=== PATIENT | male | born 1950 | race Caucasian/White ===

== ENCOUNTER → 2016-10-09 | Outpatient (CLI) | payer OTHER ==
[~2016-10-09] MED LIST: ISOVUE-370 76% 100ML VIAL (Q9967) As Ordered ONE
--- NOTE | 2016-10-12 15:04 | REP ---
CT ANGIOGRAM ABDOMINAL AORTA AND RUNOFF ANGIOGRAM: 10/09/2016. Clinical history: Abdominal aortic aneurysm. Aortobi-iliac stent graft. Recheck. Technique: Helical scanning through the abdomen and pelvis then lower extremities at 3 mm images. Coronal and sagittal reconstructions with 3-D MIP reformatting with thick slab technique with curved reformat images through the aortoiliac femoral course to the knee on both sides. Findings: CT ABDOMEN: The lung bases show dependent atelectatic change, but otherwise clear. Liver shows scattered hypodensities unchanged from prior study. Most of these are consistent with cysts. Gallbladder, spleen, adrenal glands and pancreas unremarkable. Stomach without hiatal hernia. Small bowel loops unremarkable. Colon shows no colitis, diverticulitis, stricture or masses. There is a normal-appearing appendix. The kidneys show function without obstruction. There is a tiny exophytic cyst anteriorly on the right and small scar posteriorly in that right kidney interpolar region. Degenerative changes throughout the spine. There are no destructive lesions in the spine or ribs. The suprarenal aorta shows no aneurysm or dissection. The infrarenal abdominal aorta shows a saccular aneurysm 8.3 x 7.2 x 8.7 cm, unchanged. The aortobi-iliac stent has a wide-mouth superiorly and it is two iliac components extending to the common iliac arteries. There is some atherosclerotic plaque in both iliac vessels. There is flow remaining through the stent in both limbs. At the inferior margin of the stent a curvilinear focus of density is seen at the inferior aspect of the right limb of the stent within the aneurysm at its thrombosed portion of the graft limbs eccentric anteriorly and towards the right of that large aneurysm. It appears unchanged. There are areas of calcification in the wall of the aorta and its intima. All of this is unchanged. 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 Both external iliac arteries are patent. Some atherosclerotic calcifications without dissection. The femoral arteries in the thigh are symmetric with atherosclerotic calcifications bilaterally. The runoff in the lower legs is suboptimal. Atherosclerotic calcifications in the popliteal artery and branches are suggested. Impression: 1. Stable appearance of the infrarenal abdominal aortic aneurysm with saccular appearance and large thrombosed lumen with aortobi-iliac stent as before. Flow is observed in the stent throughout and there is curvilinear density in the inferior aspect of the stent along the distal right limb of the iliac portion of the graft suggesting an endoleak may be present. No other findings or interval change regarding the stent. 2. Atherosclerotic calcifications scattered in the common femoral, popliteal artery. This is not a good runoff study, but findings appear similar to the previous study and lower legs. 3. 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 Signed by Mj Rucker MD 10/12/2016 05:22 P
== END ==
LOC: M RAD 10:35
PROVIDERS: ATTEND Surgery
DX: T82.330A Leakage of aortic (bifurcation) graft (replacement), initial encounter (principal)

== ENCOUNTER → 2016-11-18 | Outpatient (REF) | payer OTHER | LOC: M LAB REF 09:21 | PROVIDERS: ATTEND Physician Assistant | DX: J02.9 Acute pharyngitis, unspecified (principal) ==

== ENCOUNTER 2017-06-22 08:21 | Emergency (ER) | payer OTHER ==
[~2017-06-22] VITALS: Ht 182.9 cm; Wt 99.4 kg
[2017-06-22] MEDS ORDERED: ATEN50TA2 (08:35)
[2017-06-22] MEDS ORDERED: ATOR40TA75 (08:35)
[2017-06-22] MEDS ORDERED: TRIAMTERENE-HCTZ (08:35)
[2017-06-22] MEDS ORDERED: ASPI81TA85 PO (08:35)
[2017-06-22] MEDS ORDERED: METO1TAB7 (08:35)
[2017-06-22] MEDS ORDERED: LISI-538 (08:35)
--- NOTE | 2017-06-22 09:05 | REP ---
CHEST, PORTABLE SINGLE VIEW There is no evidence of acute infiltrate. No pleural effusion is seen. The heart is normal in size. The mediastinal silhouette is unremarkable. The visualized osseous structures are intact. IMPRESSION: No acute pulmonary disease. Signed by Be Abraham MD 06/22/2017 01:17 P
--- NOTE | 2017-06-22 09:19 | ECGEPIP ---
Stationary ECG Study [facility] - ED Test Date: 2017-06-22 Pat Name: RM ROSA Department: Room: - Gender: M Director Of Analytics: kenyatta : 1950 Requested By: Azra Avalos Order Number: [id number] Reading MD: Marko Garcia Measurements Intervals [place] Rate: 64 P: 48 FL: 192 QRS: -9 QRSD: 100 T: 32 QT: 383 QTc: 396 Interpretive Statements SINUS RHYTHM NSTTW ABNORMALITIES NO PRIORS FOR COMPARISON Electronically Signed On 06-22-2017 9:18:58 EDT by Marko Garcia
[2017-06-22 09:22] LABS: BASO # 0.1 10^3/uL (0.0-0.2); BASO % 0.8 % (0.0-1.0); EOS # 0.1 10^3/uL (0.0-0.50); EOS % 1.6 % (0.0-3.0); IMMATURE GRANULOCYTE % 0.3 % (0-0); LYMPH # 1.5 10^3/uL (1.5-4.5); LYMPH % 23.6 % (24.0-44.0); MEAN CORPUSCULAR HEMOGLOBIN 31.3 pg (27.0-33.0); MEAN CORPUSCULAR HGB CONC 34.5 g/dl (32.0-36.5); MEAN CORPUSCULAR VOLUME 90.9 fl (80.0-96.0); MONO # 0.4 10^3/uL (0.0-0.8); MONO % 5.6 % (0.0-5.0); NEUTROPHILS # 4.4 10^3/uL (1.8-7.7); NEUTROPHILS % 68.1 % (36.0-66.0); PLATELET COUNT, AUTOMATED 249 10^3/uL (150-450); RED CELL DISTRIBUTION WIDTH 13.7 % (11.5-14.5); WHITE BLOOD COUNT 6.4 10^3/uL (4.0-10.0)
[2017-06-22 09:31] LABS: ADD MANUAL DIFFER NO; DIFF SLIDE NUMBER 123
[2017-06-22 09:41] LABS: INR 0.96
[2017-06-22 09:44] LABS: ALBUMIN 3.9 GM/DL (3.2-5.2); ALBUMIN/GLOBULIN RATIO 1.22 (1.00-1.93); ALKALINE PHOSPHATASE 58 U/L (45-117); ALT/SGPT 32 U/L (12-78); ANION GAP 6 MEQ/L (8-16); AST/SGOT 20 U/L (7-37); BILIRUBIN,DIRECT 0.1 MG/DL (0.0-0.2); BILIRUBIN,TOTAL 0.5 MG/DL (0.2-1.0); BLOOD UREA NITROGEN 11 MG/DL (7-18); CALCIUM LEVEL 9.6 MG/DL (8.8-10.2); CARBON DIOXIDE LEVEL 30 MEQ/L (21-32); CHLORIDE LEVEL 104 MEQ/L (98-107); GLOMERULAR FILTRATION RATE > 60.0 (>49); GLUCOSE, FASTING 119 MG/DL (80-110); POTASSIUM SERUM 4.7 MEQ/L (3.5-5.1); SODIUM LEVEL 140 MEQ/L (136-145); TOTAL PROTEIN 7.1 GM/DL (6.4-8.2)
[2017-06-22] MEDS ORDERED: HEPARIN DRIP 25,000 UNITS in APPROPRIATE DILUENT 1 EA IV SCH (10:00)
[2017-06-22] MEDS ORDERED: ASPIRIN 81 MG CHEW TABLET PO ONE ×2 (10:00)
[2017-06-22] MEDS ORDERED: HEPARIN SOD (PORCINE) 5000 UNITS/ML VIAL IV ONE (10:15)
[2017-06-22] MEDS ORDERED: NITROGLYCERIN 2% OINT 1 GM *U/D* PKT TOP ONE (10:15)
[2017-06-22 10:16] VITALS: BP 169/95
[2017-06-22 12:19] VITALS: BP 152/88
== END 2017-06-22 12:25 | disposition short-term general hospital (02) ==
LOC: M ED 08:21
DX: I24.9 Acute ischemic heart disease, unspecified (principal); I25.2 Old myocardial infarction; I10 Essential (primary) hypertension; E78.4 Other hyperlipidemia; Z87.891 Personal history of nicotine dependence

== ENCOUNTER → 2019-10-16 | Outpatient (CLI) | payer OTHER ==
[~2019-10-16] MED LIST changes: +ASPI81TA85 PO; +ATEN50TA2; +ATOR40TA75; -ISOVUE-370 76% 100ML VIAL (Q9967) As Ordered ONE; +LISI-538; +METO1TAB7; +TRIAMTERENE-HCTZ
[2019-10-16 13:02] LABS: BLOOD UREA NITROGEN 14 MG/DL (7-18); CARBON DIOXIDE LEVEL 30 MEQ/L (21-32); CHLORIDE LEVEL 106 MEQ/L (98-107); CREATININE FOR GFR 0.83 MG/DL (0.70-1.30); GLOMERULAR FILTRATION RATE > 60.0 (>42); GLUCOSE, FASTING 104 MG/DL (70-100); POTASSIUM SERUM 4.3 MEQ/L (3.5-5.1); SODIUM LEVEL 139 MEQ/L (136-145)
== END ==
LOC: M LAB 11:46
DX: Z98.890 Other specified postprocedural states (principal); Z79.82 Long term (current) use of aspirin

== ENCOUNTER → 2019-10-25 | Outpatient (CLI) | payer OTHER ==
[~2019-10-25] MED LIST changes: +ISOVUE-370 76% 100ML VIAL (Q9967) As Ordered ONE
--- NOTE | 2019-10-25 12:04 | REPVR ---
PROCEDURE INFORMATION: Exam: CTA Angiogram of the Abdominal Aorta and Bilateral Lower Extremities (Run-off) With IV Contrast Exam date and time: 10/25/2019 10:29 AM Age: 69 years old Clinical indication: Other: Post triple a repair; Additional info: Status post triple a repair TECHNIQUE: Imaging protocol: CT angiogram of the abdominal aorta, pelvis and bilateral lower extremities with IV iodinated contrast. 3D rendering: MIP and/or 3D reconstructed images were created by the technologist. Radiation optimization: All CT scans at this facility use at least one of these dose optimization techniques: automated exposure control; mA and/or kV adjustment per patient size (includes targeted exams where dose is matched to clinical indication); or iterative reconstruction. Contrast material: ISOVUE 370; Contrast volume: 100 ml; Contrast route: IV; COMPARISON: CT ANGIO ABDOMINAL ARTERIES 10/09/2016 11:12 AM FINDINGS: Aorta: There is mild arterial sclerotic disease of the proximal aorta and visceral branches. There is redemonstration of a saccular 6.4 x 8.4 by 9 cm long aneurysm of the distal abdominal aorta within which has been placed an aorto bi-iliac stent graft. The dimensions are similar to the previous study which is concerning for a persistent endoleak but the study has not been designed to evaluate for this. Celiac trunk and mesenteric arteries: No occlusion or significant stenosis. 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 Right iliac arteries: There is moderate calcification of the right common iliac artery without evidence of aneurysm. There is heavy calcification of the right internal iliac artery without evidence of aneurysm or occlusion. Right femoral/popliteal arteries: There is heavy calcification at the right common femoral artery bifurcation on axial image 148 with transverse narrowing of the lumen to 3.5 mm compare to a distal reference diameter of 9 mm suggesting a 60% stenosis. There is scattered proximal and heavy distal calcification of the right superficial femoral artery without stenosis. There is moderate calcification of the right popliteal artery without stenosis. Right infrapopliteal arteries: There is three-vessel arterial runoff to the right ankle. Left iliac arteries: No occlusion or significant stenosis. Left femoral/popliteal arteries: There is angulation of the left common femoral artery stent best seen on coronal image 45. There is no evidence of stenosis. There is a pseudoaneurysm at the left groin measuring 32 mm transversely by 24 mm AP filling from the left common femoral artery on axial image 132 with the left hypogastric artery arising immediately distal to the aneurysm. Previous measurements were 19 x 17 mm suggesting interval growth. There are scattered calcifications in the proximal left superficial femoral artery slightly increasing distally but with no stenosis. There are scattered calcifications of the left popliteal artery without stenosis. Left infrapopliteal arteries: There is three-vessel arterial runoff to the left ankle. Lungs: The visualized portions of the lung bases are normal. There is a longitudinal array of metallic opacities extending from the posterior surface of the aortic bifurcation along the sacrum toward the right side of uncertain significance but possibly reflecting coiling of a vessel. Liver: There are multiple liver hypodensities that cannot be further characterized on the current examination. Gallbladder and bile ducts: Unremarkable. No calcified stones. No ductal dilation. Pancreas: The pancreas is normal. Spleen: The spleen is normal. Adrenals: The adrenal glands are normal. Kidneys and ureters: Normal. No mass. Stomach and bowel: There is extensive diverticulosis extending proximal to the splenic flexure without evidence of acute inflammation. Appendix: A normal appendix is identified. Bladder: Unremarkable. No mass. Reproductive: The prostate gland demonstrates nonspecific parenchymal calcifications. Intraperitoneal space: Unremarkable. No free air. No significant fluid collection. Lymph nodes: No lymphadenopathy. Bones/joints: There are moderate degenerative changes of the bilateral hip joints. A right convex spinal curve is observed. The spine demonstrates moderate degenerative changes at multiple levels. Soft tissues: There is a fat filled right inguinal hernia. There are calcifications of the medial right buttock which may reflect remote fatty necrosis. IMPRESSION: 1. There are moderate degenerative changes of the bilateral hip joints. 2. There is a longitudinal array of metallic opacities extending from the posterior surface of the aortic bifurcation along the sacrum toward the right side of uncertain significance but possibly reflecting coiling of a vessel. 3. 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 4. There is redemonstration of a saccular 6.4 x 8.4 by 9 cm long aneurysm of the distal abdominal aorta within which has been placed an aorto bi-iliac stent graft. The dimensions are similar to the previous study which is concerning for a persistent endoleak but the study has not been designed to evaluate for this. 5. There is heavy calcification at the right common femoral artery bifurcation on axial image 148 with transverse narrowing of the lumen to 3.5 mm compare to a distal reference diameter of 9 mm suggesting a 60% stenosis. 6. There is scattered proximal and heavy distal calcification of the right superficial femoral artery without stenosis. 7. There is three-vessel arterial runoff to the right ankle. 8. There is a pseudoaneurysm at the left groin measuring 32 mm transversely by 24 mm AP filling from the left common femoral artery on axial image 132 with the left hypogastric artery arising immediately distal to the aneurysm. Previous measurements were 19 x 17 mm suggesting interval growth. 9. There is three-vessel arterial runoff to the left ankle. Electronically signed by: Mike Cardenas On 10/25/2019 12:03:45 PM
== END ==
LOC: M RAD 10:12
DX: Z98.890 Other specified postprocedural states (principal); Z86.79 Personal history of other diseases of the circulatory system
CPT/HCPCS: 75635; Q9967

== ENCOUNTER → 2020-09-06 | Outpatient (REF) | payer OTHER ==
[~2020-09-06] MED LIST changes: -ASPI81TA85 PO; +ASPI81TA86 PO; -ISOVUE-370 76% 100ML VIAL (Q9967) As Ordered ONE
== END ==
LOC: M LAB REF 08:43
PROVIDERS: ATTEND Dermatology
DX: C44.301 Unspecified malignant neoplasm of skin of nose (principal)

== ENCOUNTER → 2020-10-18 | Outpatient (CLI) | payer OTHER ==
[~2020-10-18] MED LIST changes: -LISI-538; +LISI20TA33
--- NOTE | 2020-10-18 16:52 | REP ---
INDICATION: CONTUSION COMPARISON: Left hip 07/10/2020. TECHNIQUE: AP and lateral left femur. FINDINGS: There is no evidence of acute fracture, dislocation, or intrinsic bone disease.There are mild degenerative changes at the left hip joint unchanged. Moderate diffuse vascular calcifications are seen in the soft tissues of the thigh. There are mild degenerative changes at the medial aspect of the knee joint. IMPRESSION: No fracture or dislocation. Mild degenerative changes at the hip and knee joints. <Electronically signed by Be Abraham > 10/18/20 1251
== END ==
LOC: M WUC 13:39
PROVIDERS: ATTEND Physician Assistant
DX: S70.12XA Contusion of left thigh, initial encounter (principal); X58.XXXA Exposure to other specified factors, initial encounter; Y92.89 Other specified places as the place of occurrence of the external cause; Y93.89 Activity, other specified; Y99.8 Other external cause status

== ENCOUNTER → 2021-04-07 | Outpatient (CLI) | payer OTHER ==
[~2021-04-07] MED LIST changes: +ASPI81TA26 PO
== END ==
LOC: M LABSMTC 09:22
PROVIDERS: ATTEND Anesthesiology
DX: Z01.818 Encounter for other preprocedural examination (principal)

== ENCOUNTER 2021-04-11 10:26 | Day surgery (SDC) | payer OTHER ==
[~2021-04-11] VITALS: Ht 182.9 cm; Wt 95.7 kg
[~2021-04-11 10:26] MED LIST changes: +NS 1,000 ML IV ONE
[2021-04-11] MEDS ORDERED: LIDOCAINE 2% 100MG/5ML SDV (FOR ANES.) As Ordered ONE (11:44)
[2021-04-11] MEDS ORDERED: propofoL 500 MG/50 ML VIAL As Ordered ONE (11:44)
--- NOTE | 2021-04-11 11:57 | ROOR ---
Patient Name: Mack Barr Procedure Date: 04/11/2021 11:37 AM Date of : 1950 Age: 70 Room: [facility] Gender: Male Note Status: Finalized Procedure: Total Colonoscopy to Cecum + Biopsy Polypectomy Indications: Screening for colorectal malignant neoplasm, Last colonoscopy: 2008 Providers: Kana Donnelly MD Referring MD: Regina HAYNES DO Requesting Provider: Medicines: Monitored Anesthesia Care Complications: No immediate complications. Procedure: Pre-Anesthesia Assessment: - The heart rate, respiratory rate, oxygen saturations, blood pressure, adequacy of pulmonary ventilation, and response to care were monitored throughout the procedure. The Colonoscope was introduced through the anus and advanced to the cecum, identified by appendiceal orifice and ileocecal valve. The colonoscopy was performed without difficulty. The patient tolerated the procedure well. The quality of the bowel preparation was good. Findings: The perianal and digital rectal examinations were normal. Non-bleeding internal hemorrhoids were found during retroflexion. The hemorrhoids were small and Grade I (internal hemorrhoids that do not prolapse). Multiple small and large-mouthed diverticula were found in the recto-sigmoid colon, sigmoid colon and descending colon. A diminutive polyp was found in the mid ascending colon. The polyp was sessile. The polyp was removed with a jumbo cold forceps. Resection and retrieval were complete. The exam was otherwise without abnormality on direct and retroflexion views. Impression: - Non-bleeding internal hemorrhoids. - Diverticulosis in the recto-sigmoid colon, in the sigmoid colon and in the descending colon. - One diminutive polyp in the mid ascending colon, removed with a jumbo cold forceps. Resected and retrieved. - The examination was otherwise normal on direct and retroflexion views. - The exam was otherwise normal to the cecum. Recommendation: - Patient has a contact number available for emergencies. The signs and symptoms of potential delayed complications were discussed with the patient. Return to normal activities tomorrow. Written discharge instructions were provided to the patient. - High fiber diet. - Discharge patient to home. - Continue present medications. - Await pathology results. - Telephone GI clinic for pathology results in 1 week. - Repeat colonoscopy in 5 years for surveillance based on pathology results. - Return to referring physician. - The findings and recommendations were discussed with the patient's family. Procedure Code(s): --- Professional --- 00759, Colonoscopy, flexible; with biopsy, single or multiple Diagnosis Code(s): --- Professional --- Z12.11, Encounter for screening for malignant neoplasm of colon K64.0, First degree hemorrhoids K63.5, Polyp of colon K57.30, Diverticulosis of large intestine without perforation or abscess without bleeding CPT copyright 2019 [employer]. All rights reserved. The codes documented in this report are preliminary and upon ladder operator review may be revised to meet current compliance requirements. Kana Donnelly MD Kana Donnelly MD 04/11/2021 11:57:28 AM Electronically signed by Kana Donnelly MD Number of Addenda: 0 Note Initiated On: 04/11/2021 11:37 AM Estimated Blood Loss: Estimated blood loss: none.
[2021-04-11 12:20] VITALS: BP 112/59
== END 2021-04-11 12:27 | disposition home or self-care (01) ==
LOC: M OPP 10:26
PROVIDERS: ATTEND Internal Medicine Gastroenterology
DX: Z12.11 Encounter for screening for malignant neoplasm of colon (principal); D12.2 Benign neoplasm of ascending colon; K64.0 First degree hemorrhoids; K57.30 Diverticulosis of large intestine without perforation or abscess without bleeding; I10 Essential (primary) hypertension; E78.5 Hyperlipidemia, unspecified; Z87.891 Personal history of nicotine dependence; Z79.82 Long term (current) use of aspirin; Z79.899 Other long term (current) drug therapy

== ENCOUNTER → 2021-10-10 | Outpatient (CLI) | payer OTHER ==
[~2021-10-10] MED LIST changes: -NS 1,000 ML IV ONE
== END ==
LOC: M PLAIMG 12:48
PROVIDERS: ATTEND Surgery
DX: I71.4 Abdominal aortic aneurysm, without rupture (principal); K57.30 Diverticulosis of large intestine without perforation or abscess without bleeding

== ENCOUNTER → 2022-11-02 | Outpatient (CLI) | payer OTHER | LOC: M PLAIMG 13:07 | PROVIDERS: ATTEND Surgery | DX: I71.40 Abdominal aortic aneurysm, without rupture, unspecified (principal); K76.89 Other specified diseases of liver; M41.9 Scoliosis, unspecified; N40.0 Benign prostatic hyperplasia without lower urinary tract symptoms ==

== ENCOUNTER → 2023-01-26 | Outpatient (CLI) | payer OTHER | LOC: M RAD 12:19 | PROVIDERS: ATTEND Nurse Practitioner Adult Health | DX: R10.2 Pelvic and perineal pain (principal) ==

== ENCOUNTER 2023-06-29 07:50 | Day surgery (SDC) | payer MEDICARE, OTHER ==
[~2023-06-29] VITALS: Ht 185.4 cm; Wt 94.9 kg
[~2023-06-29 07:50] MED LIST changes: +AMLO1TAB25 PO; -ATEN50TA2; +ATEN50TA2 PO; -ATOR40TA75; +ATOR40TA75 PO; +CALC0.004 TOP; +CHOL100013 PO; +EZET10TA21 PO; +FLUO1CRE2 TOP; +HYDR-3490 PO; +LISI40TA4 PO; +NIAC500T29 PO; +NITR0.4S14 SL; +ceFAZolin SOD 2 GM in IV 1 EA IV ONE
[2023-06-29] MEDS ORDERED: SUGAMMADEX SODIUM 500 MG/5 ML VIAL (BRIDION) As Ordered ONE (09:57)
[2023-06-29] MEDS ORDERED: KETOROLAC 60MG 2ML VIAL As Ordered ONE (09:57)
[2023-06-29] MEDS ORDERED: ACETAMINOPHEN 1000MG 100ML IV BAG As Ordered ONE (09:57)
[2023-06-29] MEDS ORDERED: diphenhydrAMINE 50MG/ML VIAL IV PRN (11:10)
[2023-06-29] MEDS ORDERED: LR 1,000 ML IV SCH (11:10)
[2023-06-29] MEDS ORDERED: fentaNYL 100 MCG/2 ML INJECTION IV PRN (11:10)
[2023-06-29] MEDS ORDERED: MEPERIDINE 25 MG/ML 1ML VIAL IV PRN (11:10)
[2023-06-29] MEDS ORDERED: HYDROMORPHONE HCL 0.5 MG/ 0.5 ML SYRINGE IV PRN (11:10)
[2023-06-29] MEDS ORDERED: oxyCODONE 5MG TAB PO PRN (11:10)
[2023-06-29] MEDS ORDERED: METOCLOPRAMIDE INJ 10MG/2ML VIAL IV PRN (11:10)
[2023-06-29] MEDS ORDERED: ONDANSETRON 4MG 2ML VIAL IV PRN (11:10)
[2023-06-29] MEDS ORDERED: NORCO, ANEXSIA 5/325MG TABLET (HYDROcodone/ACETAMINOPHEN) PO PRN (11:20)
[2023-06-29] MEDS ORDERED: NS 1,000 ML IV SCH (11:20)
[2023-06-29] MEDS ORDERED: propofoL 200 MG/20 ML VIAL As Ordered ONE (12:07)
[2023-06-29] MEDS ORDERED: ROCURONIUM BROMIDE 50MG/5ML VIAL As Ordered ONE (12:07)
[2023-06-29] MEDS ORDERED: LIDOCAINE 2% 100MG/5ML SDV (FOR ANES.) As Ordered ONE (12:07)
[2023-06-29] MEDS ORDERED: MIDAZOLAM INJ 2MG/2ML VIAL As Ordered ONE (12:07)
[2023-06-29] MEDS ORDERED: ONDANSETRON 4MG 2ML VIAL As Ordered ONE (12:07)
[2023-06-29] MEDS ORDERED: fentaNYL 100 MCG/2 ML INJECTION As Ordered ONE (12:07)
[2023-06-29 13:02] VITALS: BP 155/83; TEMP 97.4; O2SAT 95
== END 2023-06-29 13:05 | disposition home or self-care (01) ==
LOC: M SDC 07:50
PROVIDERS: ATTEND Surgery
DX: K40.90 Unilateral inguinal hernia, without obstruction or gangrene, not specified as recurrent (principal); I10 Essential (primary) hypertension; I25.2 Old myocardial infarction; E78.00 Pure hypercholesterolemia, unspecified; Z79.82 Long term (current) use of aspirin; Z79.899 Other long term (current) drug therapy
CPT/HCPCS: 49650; C1781; J0131; J0665; J0690; J1100; J1885; J2250; J2405; J3010

== ENCOUNTER → 2023-12-03 | Outpatient (CLI) | payer MEDICARE, OTHER ==
[~2023-12-03] MED LIST changes: -ceFAZolin SOD 2 GM in IV 1 EA IV ONE
== END ==
LOC: M PLAIMG 13:56
PROVIDERS: ATTEND Surgery
DX: I71.40 Abdominal aortic aneurysm, without rupture, unspecified (principal)

== ENCOUNTER → 2024-12-19 | Outpatient (CLI) | payer MEDICARE, OTHER | LOC: M PLAIMG 12:23 | PROVIDERS: ATTEND Surgery | DX: I71.40 Abdominal aortic aneurysm, without rupture, unspecified (principal) ==